=== PATIENT | male | born 1955 ===

== ENCOUNTER → 2018-11-27 15:00 | Outpatient (REF) | payer OTHER, SELFPAY ==
[2018-11-27 16:02] LABS: Alanine Aminotransferase 28 IU/L (21-72); Albumin 4.6 g/dL (3.5-5.0); Albumin Globulin Ratio 1.9 (1.0-2.8); Alkaline Phosphatase 44 U/L (38-126); Aspartate Aminotransferase 24 IU/L (17-59); Bilirubin Total 0.9 mg/dL (0.2-1.3); Blood Urea Nitrogen 18 mg/dL (9-20); Calcium 9.7 mg/dL (8.4-10.2); Carbon Dioxide 29 mmol/L (22-32); Chloride 103 mmol/L (98-107); Cholesterol 193 mg/dL (140-199); Estimated Glomerular Filt Rate > 60.0 mL/min (>60); Globulin 2.4 g/dL (1.7-4.1); Glucose 94 mg/dL (80-110); HDL Cholesterol 78 mg/dL (40-60); HEMOLYSIS 20 (0-50); LDL Cholesterol Calculated 105 mg/dL (<100); Sodium 141 mmol/L (137-145); Triglycerides 52 mg/dL (35-150)
[2018-11-27 16:29] LABS: Potassium 5.7 mmol/L (3.4-5.1)
[2018-11-27 16:33] LABS: Prostate Specific Antigen 0.505 ng/mL (0.10-4.00)
== END ==
LOC: LAB 15:00
PROVIDERS: Visit Provider Family Medicine
DX: Z12.5 Encounter for screening for malignant neoplasm of prostate (principal); Z13.6 Encounter for screening for cardiovascular disorders; Z13.1 Encounter for screening for diabetes mellitus
CPT/HCPCS: 36415; 80053; 80061; 84153